=== PATIENT | female | born 1990 | race African-American/Black ===

== ENCOUNTER 2020-02-12 12:57 | Emergency (ER) | payer MEDICARE, MEDICAID, SELFPAY ==
[2020-02-12] VITALS (13 sets, daily range): BP systolic 110–116; BP diastolic 62–69; PULSE 84–98; RESP 12–17; TEMP 36.7; O2SAT 98–100
--- NOTE | ~2020-02-12 | CT_ITS ---
EXAMINATION: CT brain wo con DATE: 02/12/2020 14:25 INDICATION: Headache. Paresthesias. TECHNIQUE: Computed tomography (CT) of the head was performed without intravenous contrast. Sagittal and coronal reconstructions were performed. The mA was adjusted according to patient size. Iterative reconstruction technique was employed. The dose-length product was 605.33 mGy-cm. COMPARISON: None FINDINGS: No acute intracranial hemorrhage, acute infarction or abnormal extra axial fluid collection. Ventricl es are normal and symmetric. No mass/mass effect. Mucosal thickening in the bilateral maxillary, ethm oid and sphenoid sinuses. The orbits and mastoid air cells are normal. IMPRESSION: 1. Normal brain. No acute intracranial process. Reviewed, dictated and finalized at location A. [employer]
--- NOTE | 2020-02-12 13:05 | PC.NURSE ---
patient brought back to ED room 12. initial assessment completed. alert. oriented. see initial note. here with c/o headache. assessments documented. waiting for orders from provider. patient placed in gown and on lunchroom monitor. call light in reach.
--- NOTE | 2020-02-12 13:39 | ED.HA ---
HPI - Headache General Chief Complaint: Headache Stated Complaint: HEADACHE Time Seen by Provider: 02/12/20 13:11 Source: patient Mode of arrival: ambulatory Limitations: no limitations History of Present Illness HPI Narrative: This is a 29 year old female that presents to the ER for headache since yesterday. Reports pain is aching in nature. Associated with photophobia. Also reports tingling in her hands and feet. She took ibuprofen with little relief this morning. Denies fever, vision changes, vomiting, numbness, or weakness. Related Data Allergies Allergy/AdvReac Type Severity Reaction Status Date / Time No Known Allergies Allergy Mild Verified 06/15/12 21:34 Review of Systems Review of Systems: Narrative: CONSTITUTIONAL: Denies fever EYES: Denies visual changes GASTROINTESTINAL: Denies vomiting NEUROLOGIC: Reports headache. Denies numbness, or weakness. All systems reviewed & are unremarkable except as noted in HPI and below PMFSH Past Medical History Medical History (Updated 02/12/20 @ 15:17 by Sudha Flores PA-C) History of depression Social History Social History (Updated 02/12/20 @ 15:15 by Sudha Flores PA-C) Substance use: current Substance use type: amphetamines Exam Narrative: Exam Narrative: GENERAL: Well-appearing, well-nourished, and in no acute distress. HEAD: Normocephalic, atraumatic. EYES: PERRLA and EOMI. ENT: Nares clear, no rhinorrhea or epistaxis. Mucous membranes moist. Oropharynx without tonsillar hypertrophy exudate or other lesions. Bilateral TMs pearly castro non-bulging NECK: Supple. No adenopathy or masses. CHEST: Clear to auscultation. No respiratory distress. No wheezes rales or rhonchi HEART: Regular rate and rhythm. No murmur heard. Normal peripheral pulses. EXTREMITIES: Normal range of motion. No edema. Strength equal in bilateral upper and lower extremities (5/5) SKIN: Warm, dry, no rash. NEURO: No focal deficits. Alert and oriented x3. Cranial nerves II through XII grossly intact. Normal [id number] PSYCH: Normal mood and affect Course Vital Signs Vital signs: Vital Signs Temperature 98.1 F 02/12/20 13:06 Pulse Rate 98 02/12/20 13:06 Respiratory Rate 17 02/12/20 13:06 Blood Pressure 110/69 02/12/20 13:06 Pulse Oximetry 98 02/12/20 13:06 Temperature 98.1 F 02/12/20 13:06 Pulse Rate 84 02/12/20 14:30 Respiratory Rate 12 02/12/20 14:30 Blood Pressure 116/62 02/12/20 13:16 Pulse Oximetry 98 02/12/20 14:30 MDM - Headache MDM Narrative Medical decision making narrative: Patient presents to the ER for headache since yesterday. He is afebrile and nontoxic-appearing. She is neurologically intact. CT scan of the brain is without acute findings. Reports improvement with migraine cocktail. She is stable and felt appropriate for further outpatient evaluation. She was given warnings to return to the ER Imaging Data Radiologist's impression: ITS Impressions Head CT 02/12/20 14:29 IMPRESSION: 1. Normal brain. No acute intracranial process. Critical Care Time Critical Care Time Critical Care Time: No Discharge Plan Discharge Clinical Impression: Headache Qualifiers: Headache type: unspecified Headache chronicity pattern: acute headache Intractability: not intractable Qualified Code(s): R51.9 - Headache, unspecified Patient Disposition: Home, Self-Care Condition: Stable Instructions: Acute Headache (ED), Methamphetamine Abuse (ED) Additional Instructions: Return to the emergency department if you experience fever, vision changes, vomiting, sudden onset numbness or weakness, or any other symptoms that are concerning to you Rest. Remain well-hydrated. Tylenol or ibuprofen as needed for pain Follow-up with your primary care doctor Follow-up/Referrals: Umer,Roxann Napoles MD [Primary Care Provider] - 3 Days
[2020-02-12] MEDS: diphenhydrAMINE HCl INJ 50 MG/ML VIAL 25 MG IV PUSH (14:04)
[2020-02-12] MEDS: METOCLOPRAMIDE HCL INJ 10 MG/2 ML VIAL IV PUSH (14:04)
[2020-02-12] MEDS: SODIUM CHLORIDE 0.9% IV 1,000 ML 999 ML IV CONT (14:06)
--- NOTE | 2020-02-12 14:35 | PC.NURSE ---
Pt IV infiltrated, pt states she does not want another IV.
--- NOTE | 2020-02-12 14:50 | PC.NURSE ---
resting on stretcher. alert but sleepy. arouses easily to verbal stimuli. IV infiltrated but feels better after meds given. mother called for condition. wants to be called back when patient is discharged.
--- NOTE | 2020-02-12 15:37 | PC.NURSE ---
spoke with patient's mother Eulalia. patient is ready for discharge. this RN to room. patient sleepy but arouses easily. monitors removed. advised her mother is on her way.
== END 2020-02-12 15:39 | disposition home or self-care (01) ==
PROVIDERS: Emergency Provider Emergency Medicine; PCP Family Medicine
DX: R51.9 Headache, unspecified (principal)
CPT/HCPCS: 70450; 96361; 96374; 96375; 99284; J0131; J1200; J2765; J7030

== ENCOUNTER 2021-12-09 18:42 | Emergency (ER) | payer MEDICARE, MEDICAID, SELFPAY ==
[2021-12-09 18:54] VITALS: BP 141/81; PULSE 106; RESP 16; TEMP 37; O2SAT 100
[2021-12-09 19:25] VITALS: BP 127/85; PULSE 100; RESP 14; O2SAT 97
--- NOTE | 2021-12-09 19:47 | ED.DENTAL ---
HPI - Dental/Oral General Chief complaint: Dental/Oral Stated complaint: dental pain Time Seen by Provider: 12/09/21 19:28 Source: patient and RN notes reviewed Mode of arrival: ambulatory Limitations: no limitations History of Present Illness HPI Narrative: This is a 31 year old female who presents for evaluation of a dental abscess. She noticed sore to left upper palate 2 days ago. This area has increased in size. She started taking some old antibiotics yesterday. She is taking aleve and ibuprofen for her pain, but she states it is wearing off. Related Data Allergies Allergy/AdvReac Type Severity Reaction Status Date / Time No Known Allergies Allergy Mild Verified 12/09/21 19:36 Review of Systems Review of Systems: All systems reviewed & are unremarkable except as noted in HPI and below Constitutional: Constitutional: Denies chills, Denies fatigue and Denies fever(s) Cardiovascular: Cardiovascular: Denies chest pain PMFSH Past Medical History Medical History History of depression Social History Social History (Updated 02/12/20 @ 15:15 by Sudha Flores PA-C) Substance use: current Substance use type: amphetamines Exam Const: General: no acute distress and alert Nutritional Appearance: well nourished Orientation/consciousness: patient oriented x3 Limitations: no limitations HENMT: Head: normal to inspection Face and sinus: normal facial exam Mouth: Yes lip normal and Yes moist mucous membranes Teeth and gingiva: abnormal tooth and associated gingiva (at location 10 with area of fluctance above socket and on palate) and poor dentition Throat: posterior oropharynx normal, tonsils normal and uvula midline Eyes: EOM: EOMs intact bilaterally Resp: Effort & Inspection: normal respiratory effort Skin: General skin exam: normal color Rashes: no rashes Neuro: General: patient oriented x3, moves all extremities and CN's II-XI intact bilaterally Psych: Mental Status: mental status grossly normal Affect: normal affect Attitude: cooperative Course Reevaluation(s) Reevaluation #1: Patient had small area that started draining anterior and she was able to express pus. I also further I And D. She understands she will be started on antibiotics. She has appointment with dentist Date: 12/09/21 Time: 21:14 Vital Signs Vital signs: Vital Signs Temperature 98.6 F 12/09/21 18:54 Pulse Rate 106 H 12/09/21 18:54 Respiratory Rate 16 12/09/21 18:54 Blood Pressure 141/81 H 12/09/21 18:54 Pulse Oximetry 100 12/09/21 18:54 Temperature 98.6 F 12/09/21 18:54 Pulse Rate 100 12/09/21 19:25 Respiratory Rate 14 12/09/21 19:25 Blood Pressure 127/85 12/09/21 19:25 Pulse Oximetry 97 12/09/21 19:25 MDM - Dental/Oral Lab Data Attestation: I reviewed the patient's lab results. Discharge Plan Discharge Clinical Impression: Dental abscess Patient Disposition: Home, Self-Care Condition: Stable Instructions: Antibiotic Form, Dental Abscess (ED) Additional Instructions: Please follow up with a dentist. Take antibiotics as prescribed. Prescriptions: New clindamycin HCl 150 mg capsule 450 mg PO Q8H 10 Days Qty: 90 0RF chlorhexidine gluconate [Peridex] 0.12 % mouthwash 15 ml mucous membrane BID Qty: 118 0RF hydrocodone-acetaminophen 5-325 mg tablet 1 tablet PO Q6H PRN (Reason: pain) Qty: 7 0RF Follow-up/Referrals: Umer,Roxann Napoles MD [Primary Care Provider] - Stand Alone Forms: Work/School Release IP
[2021-12-09] MEDS: ONDANSETRON HCL ODT 4 MG TABLET PO (20:16)
[2021-12-09] MEDS: KETOROLAC (*BKC) 60 MG/2 ML VIAL IM (20:17)
== END 2021-12-09 21:00 | disposition home or self-care (01) ==
PROVIDERS: Emergency Provider General Practice; PCP Family Medicine
DX: K04.7 Periapical abscess without sinus (principal)
CPT/HCPCS: 96372; 99283; A9270; J1885

== ENCOUNTER 2022-06-13 01:34 | Emergency (ER) | payer MEDICARE, MEDICAID, SELFPAY ==
--- NOTE | ~2022-06-13 | CT_ITS ---
CT of the Abdomen and Pelvis: Indication: Abdominal pain Technique: 2.5 mm axial scans were obtained through the abdomen and pelvis following intravenous adm inistration of 100 cc of Omnipaque 350. Dose reduction technique was used on this scan by utilizing a utomated exposure control and iterative reconstruction technique. The dose-length product (DLP) was 1 163.32 mGy-cm. Findings: Scans through the lung bases are unremarkable. The liver, spleen, pancreas, gallbladder, adrenals and kidneys are within normal limits. No evidence of aortic aneurysm. No lymphadenopathy. No bowel obstruction or bowel wall thickening. There is no evidence to suggest acute appendicitis. Images through the pelvis were performed. Urinary bladder unremarkable. No significant adnexal mass e vident. No ascites. Impression: No significant abnormalities seen. Reviewed, dictated and finalized at [facility]. Impression: No significant abnormalities seen.
[2022-06-13 01:39] VITALS: BP 143/95; PULSE 81; RESP 20; TEMP 35.8; O2SAT 100
[2022-06-13] MEDS: SODIUM CHLORIDE 0.9% IV 1,000 ML 999 ML IV CONT (02:41)
[2022-06-13] MEDS: ONDANSETRON INJ 4 MG/2 ML VIAL IV PUSH (02:42)
[2022-06-13] MEDS: MORPHINE SULFATE (*CRX) 4 MG/ML INJ IV PUSH (02:42)
[2022-06-13 02:44] VITALS: BP 142/90; PULSE 60; RESP 19; O2SAT 100
[2022-06-13 03:10] LABS: Basophils Percent Auto 0.4 % (0.2-1.2); Eosinophils Absolute Auto 0.2 K/mm3 (0-0.3); Eosinophils Percent Auto 2.6 % (0-4.4); Hematocrit 36.5 % (37.0-47.0); Hemoglobin 12.2 g/dL (12.0-15.0); Immature Granulocyte Absolute 0.01 K/mm3 (0.00-0.031); Immature Granulocyte Percent A 0.1 % (0-0.5); Lymphocytes Absolute Auto 1.65 K/mm3 (0.9-3.2); Lymphocytes Percent Auto 21.5 % (18.3-44.2); Mean Corpuscular HGB Conc 33.4 g/dl (32-36); Mean Corpuscular Hemoglobin 27.7 pg (26-34); Mean Corpuscular Volume 82.8 fl (80-100); Mean Platelet Volume 9.9 fl (7.4-10.4); Monocytes Absolute Auto 0.7 K/mm3 (0.1-0.6); Monocytes Percent Auto 8.6 % (2.6-8.5); Neutrophils Absolute Auto 5.1 K/mm3 (1.3-6.7); Neutrophils Percent Auto 66.8 % (45.5-73.1); Platelet Count Result 291 k/mm3 (150-375); Red Blood Count 4.41 M/mm3 (4.2-5.4); Red Cell Distribution Width 13.5 % (11.5-14.5); White Blood Count 7.7 K/mm3 (4.5-10.0)
[2022-06-13 03:30] LABS: Alanine Aminotransferase 18 U/L (6-35); Albumin Level 3.8 g/dL (3.5-5.1); Alkaline Phosphatase 77 U/L (38-126); Anion Gap 7 mmol/L (8-16); Aspartate Amino Transferase 24 U/L (14-36); Bilirubin,Total 0.3 mg/dL (0.2-1.3); Blood Urea Nitrogen 12 mg/dL (7-17); Calcium 8.2 mg/dL (8.4-10.2); Carbon Dioxide 25 mmol/L (22-30); Chloride 103 mmol/L (98-107); Estimated Glomerular Filt Rate > 60; Glucose 106 mg/dL (65-110); Lipase 98 U/L (23-300); Sodium 135 mmol/L (137-145)
[2022-06-13] MEDS: HYDROmorphone HCL INJ (*CRX) 1 MG/ML SYR IV PUSH (03:36)
[2022-06-13 04:02] LABS: Appearance Urine Turbid (Clear); Bacteria Urine 4+ /hpf; Bilirubin Urine Negative (Negative); Blood Urine Negative (Negative); Color Urine Yellow (Yellow); Glucose Urine UA Negative (Negative); Ketones Urine Negative (Negative); Leukocyte Esterase Ur 1+ LEU/UL (Negative); Need Manual Microscopic Reviewed; Nitrate Urine Negative (Negative); Non Pathogenic Casts 0-2; Protein Urine Trace mg/dL (Negative); RBC Urine 21-50 /hpf (0-2); Specific Grav Ur 1.022 (1.001-1.035); Squamous Epithelial Cell Urine Many /hpf (Few); Urobilinogen Urine 0.2 mg/dL (<2.0); WBC Urine 21-50 /hpf
[2022-06-13 04:10] LABS: Add Urine Microscopic? YES
--- NOTE | 2022-06-13 06:00 | ED.GENADULT ---
HPI - General Adult General Chief complaint: Abdominal Pain Stated complaint: ABD PAIN Time Seen by Provider: 06/13/22 02:32 History of Present Illness HPI narrative: Patient 31-year-old female who presents the emergency department with chief complaint of abdominal pain patient reports symptoms started proximately 2 hours ago the patient reports the pain is diffuse throughout her abdomen the patient reports she had nausea no vomiting no diarrhea. The patient reports no prior intra-abdominal surgeries. Related Data Allergies Allergy/AdvReac Type Severity Reaction Status Date / Time No Known Allergies Allergy Mild Verified 12/09/21 19:36 Review of Systems Review of Systems: A 10 system review of systems was completed on the patient and is negative except for what is stated in the HPI. Nursing and ancillary documentation was reviewed. [facility] Past Medical History Medical History History of depression Social History Social History Substance use: current Substance use type: amphetamines Exam Narrative: GENERAL: Well-appearing, well-nourished, and in no acute distress. HEAD: Normocephalic, atraumatic. EYES: PERRLA and EOMI. ENT: Nares clear, no rhinorrhea or epistaxis. Mucous membranes moist. NECK: Supple. CHEST: Clear to auscultation. No respiratory distress. HEART: Regular rate and rhythm. No murmur heard. Normal peripheral pulses. ABDOMEN: Soft, diffuse tenderness throughout the, nondistended, normal active bowel sounds. EXTREMITIES: Normal range of motion. No edema. SKIN: Warm, dry, no rash. NEURO: No focal deficits. Alert and oriented x3. PSYCH: Normal mood and affect. Course Vital Signs Vital signs: Vital Signs Temperature 35.8 C L 06/13/22 01:39 Pulse Rate 81 06/13/22 01:39 Respiratory Rate 20 06/13/22 01:39 Blood Pressure 143/95 H 06/13/22 01:39 Pulse Oximetry 100 06/13/22 01:39 Temperature 35.8 C L 06/13/22 01:39 Pulse Rate 73 06/13/22 06:20 Respiratory Rate 13 06/13/22 06:20 Blood Pressure 118/71 06/13/22 06:20 Pulse Oximetry 97 06/13/22 06:20 Medical Decision Making MDM Narrative Medical decision making narrative: Differential diagnosis includes diverticulitis, colitis, appendicitis, ectopic , UTI, pyelonephritis Laboratory studies were obtained which showed a white blood cell count of 7.7 electrolytes were within normal limits liver enzymes were normal lipase was normal urinalysis showed evidence of 21-50 WBCs 1+ leukocyte esterase 4+ bacteria Patient will be started on Keflex and will be discharged home to follow-up with her primary care provider Vital Signs Vital Signs: Vital Signs Temperature 35.8 C L 06/13/22 01:39 Pulse Rate 81 06/13/22 01:39 Respiratory Rate 20 06/13/22 01:39 Blood Pressure 143/95 H 06/13/22 01:39 Pulse Oximetry 100 06/13/22 01:39 Temperature 35.8 C L 06/13/22 01:39 Pulse Rate 73 06/13/22 06:20 Respiratory Rate 13 06/13/22 06:20 Blood Pressure 118/71 06/13/22 06:20 Pulse Oximetry 97 06/13/22 06:20 Lab Data 06/13/22 02:27 06/13/22 02:27 Labs: Lab Results 06/13/22 06/13/22 06/13/22 Range/Units 02:27 02:27 02:27 WBC 7.7 (4.5-10.0) K/mm3 RBC 4.41 (4.2-5.4) M/mm3 Hgb 12.2 (12.0-15.0) g/dL Hct 36.5 L (37.0-47.0) % MCV 82.8 (80-100) fl MCH 27.7 (26-34) pg MCHC 33.4 (32-36) g/dl RDW 13.5 (11.5-14.5) % Plt Count 291 (150-375) k/mm3 MPV 9.9 (7.4-10.4) fl Immature Gran % (Auto) 0.1 (0-0.5) % Neut % (Auto) 66.8 (45.5-73.1) % Lymph % (Auto) 21.5 (18.3-44.2) % Cherry % (Auto) 8.6 H (2.6-8.5) % Eos % (Auto) 2.6 (0-4.4) % Baso % (Auto) 0.4 (0.2-1.2) % Lymph # (Auto) 1.65 (0.9-3.2) K/mm3 Cherry # (Auto) 0.7 H (0.1-0.6) K/mm3 Eos # (Auto) 0.2
[2022-06-13 06:20] VITALS: BP 118/71; PULSE 73; RESP 13; O2SAT 97
--- NOTE | 2022-06-13 06:40 | PC.NURSE ---
Called patients mother at this time for transport home. Mom informs that sister will pick patient up
== END 2022-06-13 06:48 | disposition home or self-care (01) ==
PROVIDERS: Physician Assistant; Emergency Provider Emergency Medicine; PCP Family Medicine
DX: N39.0 Urinary tract infection, site not specified (principal); R10.84 Generalized abdominal pain
CPT/HCPCS: 36415; 74177; 80053; 81001; 81025; 83690; 85025; 87086; 87088; 96361; 96374; 96375; 99284; J1170; J2270; J2405; J7030; Q9967